=== PATIENT | male | born 1970 | race Two or more races ===

== ENCOUNTER 2017-12-20 14:51 | Emergency (ER) | payer MEDICAID ==
[~2017-12-20] VITALS: Ht 180.3 cm; Wt 71.7 kg
[2017-12-20 16:21] VITALS: BP 118/68
[2017-12-20] MEDS ORDERED: predniSONE 20 MG TABLET PO ONE (16:30)
[2017-12-20] MEDS ORDERED: AZITHROMYCIN 250 MG TABLET. PO ONE (16:30)
[2017-12-20] MEDS ORDERED: IPRATRPIUM/ALBUTEROL 0.5/2.5MG 3 ML NEBU. NEB ONE (16:30)
[2017-12-20] MEDS ORDERED: PROAIR HFA8.5 GM INH (17:06)
[2017-12-20] MEDS ORDERED: TIOT18CA IH (17:06)
[2017-12-20] MEDS ORDERED: IPRA4AER IH (17:06)
[2017-12-20] MEDS ORDERED: BUDE10.2 IH (17:06)
--- NOTE | 2017-12-20 17:06 | PHYS DOC ---
Past Medical History Past Medical History: COPD Past Surgical History: No Surgical History Alcohol Use: Rarely Drug Use: None Adult General Chief Complaint Chief Complaint: SHORTNESS OF BREATH HPI HPI Patient is a 47 year old male with history of COPD, current smoker, who presents to the ED for medication refill, patient states they traveled with the emergently to [place] to see a family member who is ill and forgot his breathing treatments. Patient is requesting a prescription for them. Review of Systems Review of Systems Constitutional: Denies fever or chills [] Eyes: Denies change in visual acuity, redness, or eye pain [] HENT: Denies nasal congestion or sore throat [] Respiratory: Request for breathing treatment medication refills. Denies cough or shortness of breath [] Cardiovascular: No additional information not addressed in HPI [] GI: Denies abdominal pain, nausea, vomiting, bloody stools or diarrhea [] : Denies dysuria or hematuria [] Musculoskeletal: Denies back pain or joint pain [] Integument: Denies rash or skin lesions [] Neurologic: Denies headache, focal weakness or sensory changes [] All other systems were reviewed and found to be within normal limits, except as documented in this note. Current Medications Current Medications Current Medications Medications (Trade) Dose Ordered Sig/Charisse Start Time Stop Time Status Last Admin Dose Admin Albuterol/ Ipratropium (Duoneb) 3 ml 1X ONCE 12/20/17 16:30 12/20/17 16:31 DC 12/20/17 16:43 3 ML Azithromycin (Zithromax) 500 mg 1X ONCE 12/20/17 16:30 12/20/17 16:31 DC 12/20/17 16:37 500 MG Prednisone (Prednisone) 60 mg 1X ONCE 12/20/17 16:30 12/20/17 16:31 DC 12/20/17 16:36 60 MG Allergies Allergies Allergies Coded Allergies Type Severity Reaction Last Updated Verified Penicillins Allergy Unknown 12/20/17 Yes codeine Allergy Unknown 12/20/17 Yes hydroxyzine Allergy Unknown 12/20/17 Yes ketorolac Allergy Unknown 12/20/17 Yes olanzapine Allergy Unknown 12/20/17 Yes tramadol Allergy Unknown 12/20/17 Yes Physical Exam Physical Exam Constitutional: Well developed, well nourished, no acute distress, non-toxic appearance. [] HENT: Normocephalic, atraumatic, bilateral external ears normal, oropharynx moist, no oral exudates, nose normal. [] Eyes: PERRLA, EOMI, conjunctiva normal, no discharge. [] Neck: Normal range of motion, no tenderness, supple, no stridor. [] Cardiovascular:Heart rate regular rhythm, no murmur [] Lungs & Thorax: Bilateral breath sounds clear to auscultation [] Abdomen: Bowel sounds normal, soft, no tenderness, no masses, no pulsatile masses. [] Skin: Warm, dry, no erythema, no rash. [] Back: No tenderness, no CVA tenderness. [] Extremities: No tenderness, no cyanosis, no clubbing, ROM intact, no edema. [] Neurologic: Alert and oriented X 3, normal motor function, normal sensory function, no focal deficits noted. [] Psychologic: Affect normal, judgement normal, mood normal. [] Current Patient Data Vital Signs Vital Signs Date Time Temp Pulse Resp B/P (MAP) Pulse Ox O2 Delivery O2 Flow Rate FiO2 12/20/17 16:43 Room Air 12/20/17 16:21 98.0 89 16 118/68 (85) 99 98.0 EKG EKG [] Radiology/Procedures Radiology/Procedures [] Course & Med Decision Making Course & Med Decision Making Pertinent Labs and Imaging studies reviewed. (See chart for details) This is a 47-year-old male patient with history of smoking and COPD presented to the ED today with request for medication refill after he forgot his medication at home. [place] is from out of town. He was given prescription for Spiriva, Symbicort, Pro air, Combivent and DuoNeb. He was instructed to continue following up with his PCP. Encouraged to consider smoking cessation. Dragon Disclaimer Dragon Disclaimer This electronic medical record was generated, in whole or in part, using a voice recognition dictation system. Departure Departure Impression: Primary Impression: COPD without exacerbation Additional Impressions: Medication refill Smoking addiction Disposition: HOME, SELF-CARE Condition: STABLE Referrals: UNKNOWN PCP NAME (PCP) Follow-up with your doctor as soon as you can Patient Instructions: Chronic Obstructive Pulmonary Disease, Smoking Cessation Additional Instructions: You were evaluated in the emergency room, consider smoking cessation. Continue following up with your primary care doctor. Use the prescribed medications as ordered. Scripts Ipratropium/Albuterol Sulfate (COMBIVENT RESPIMAT INHAL) 4 Gm Aer.w.adap 2 INH IH QID, #1 INHALER Prov: ANAHI LIANG APRN 12/20/17 Albuterol Sulfate (PROAIR HFA INHALER) 8.5 Gm Hfa.aer.ad 1 PUFF INH PRN Q8HRS PRN for SHORTNESS OF BREATH, #1 INHALER 0 Refills Prov: ANAHI LIANG APRN 12/20/17 Budesonide/Formoterol Fumarate (SYMBICORT 160-4.5 MCG INHALER) 10.2 Gm Hfa.aer.ad 2 PUFF IH BID, #10.6 GM 0 Refills Prov: ANAHI LIANG APRN 12/20/17 Tiotropium [place] (SPIRIVA) 18 Mcg Cap.w.dev 1 CAP IH DAILY, #30 CAP 0 Refills Prov: ANAHI LIANG APRN 12/20/17 Problem Qualifiers ANAHI LIANG APRN Dec 20, 2017 17:06
== END 2017-12-20 17:18 | disposition home or self-care (01) ==
LOC: ER 14:51
DX: J44.9 Chronic obstructive pulmonary disease, unspecified (principal); F17.200 Nicotine dependence, unspecified, uncomplicated; Z76.0 Encounter for issue of repeat prescription; Z88.0 Allergy status to penicillin; Z88.5 Allergy status to narcotic agent; Z88.8 Allergy status to other drugs, medicaments and biological substances
CPT/HCPCS: 94640; 99283; J7512; J7620; Q0144